=== PATIENT | female | born 1960 | race Caucasian/White ===

== ENCOUNTER 2018-04-17 15:45 | Emergency (ER) | payer OTHER ==
[~2018-04-17] VITALS: Ht 170.2 cm; Wt 61.6 kg
[2018-04-17 15:49] VITALS: BP 133/80
== END 2018-04-17 17:08 | disposition home or self-care (01) ==
LOC: ER 15:45
DX: M54.9 Dorsalgia, unspecified (principal); K92.1 Melena; R11.10 Vomiting, unspecified
CPT/HCPCS: 99281